=== PATIENT | female | born 1955 | race Caucasian/White ===

== ENCOUNTER 2022-04-07 08:45 | Outpatient (RCR) | payer MEDICARE, BC, SELFPAY ==
--- NOTE | 2022-02-24 12:48 | PT.OPDNX ---
PT [facility] Daily Note PT [facility] Daily Note Start: 01/12/22 15:21 Freq: Status: Active Protocol: Document 02/24/22 07:55 ENM (Rec: 02/24/22 12:08 ENM [id number]) E-signed By Kay Fallon DPT PT [facility] Daily Progress Note Visit Information Note Type Recert/Progress Note Visit Number [id number] Insurance Information Recert Due Date 05/19/22 Insurance Name Medicare B Medical Diagnosis left shoulder scope, SAD, mini open RCR, biceps tenodesis Treating Diagnosis left shoulder pain, muscle weakness, left shoulder stiffness Referring MD Dr. Carl/Jerri Patel PA-C Subjective Subjective Patient states that she may have overdone it with exercises on Tuesday. The shoulder was more sore but it is better today. She has been trying to be more aggressive with the stretches. Pain Comments avg 08/27 Home Exercise Home Exercise Comments door jam, TAYO IR with cane Access Code: [email or web address] URL: [email or web address] Date: 02/24/2022 Prepared by: Kay Fallon Exercises Seated Shoulder Flexion AAROM with Danny Behind - 1-2 x daily - 7 x weekly - 1 sets - 10-15 reps - 3s hold Standing Bilateral Shoulder Internal Rotation AAROM with Dowel - 2 x daily - 7 x weekly - 1 sets - 10 reps Standing Serratus Punch with Resistance - 1 x daily - 3 x weekly - 2 sets - 6 reps Shoulder Flexion Wall Slide with Towel - 1 x daily - 4 x weekly - 2 sets - 10 reps Shoulder Internal Rotation with Resistance - 1 x daily - 3 x weekly - 2 sets - 10 reps Shoulder External Rotation with Anchored Resistance - 1 x daily - 3 x weekly - 2 sets - 10 reps Sidelying Shoulder Abduction - 1 x daily - 3 x weekly - 2-3 sets - 10 reps Standing Shoulder Flexion to 90 Degrees with Dumbbells - 1 x daily - 3 x weekly - 2-3 sets - 10 reps Objective Other/Pertinent Objective Left shoulder: AROM: standing flexion 98 deg before shoulder shrug 104 before significant shrug with shrug 130 IR L4 ER able to get to get to mid skull supine flexion AROM 134 supine flexion PROM 139 Patient Instructed in Risks/Benefits Yes Therapeutic Exercise Therapeutic Exercise Minutes (minutes) 22 Therapeutic Exercise: To Restore -pulleys flexion x4 min for Functional Status warm up -supine flexion with cane 15x5s holds for warm up (able to get to 132). An additional 10 reps after STM -standing flexion working on scapular control while performing -standing flexion 1# 3x10 -empty can sidelying no weight 3x10 -door jam stretch Manual Therapy Techniques Manual Therapy Minutes (minutes) 22 Manual Therapy Techniques -scapular anchoring during passive flexion and abduction stretch -grade III/IV posterior and inferior glide of L GHJ -STM L teres major, infraspinatus, subscapularis and lats. Performed infra STM with abd and ER/IR stretch -inferior glide of scapula to tissue stretch *improved tolerance for stretches and exercises following Treatment Minutes Timed Code Treatment Minutes 44 Total Treatment Time 44 Billing Units Manual Therapy Units 1 Therapeutic Exercise Units 2 Assessment/Impression Assessment/Impression Patient 16 weeks s/p rotator cuff surgery (DOS 11/05/21). She continues have tightness in the shoulder with daily activities and trying to perform exercises. Significant time spent this session working on warm up stretches and ROM exercises. Patient responding well to this reporting less pain with exercises as well as displaying improved ROM. PROM has improved to 140 deg, AROM to ~100 before significant shoulder shrug compensation. Patient has met some goals for therapy but has been limited by weakness and decreased ROM. She has progressed slower than anticipated post operatively but has made steady progress throughout. Sallie would benefit from an additional 4-5 visits every other week to continue addressing impairments in order to perform all household and recreational activities post operatively without significant discomfort or difficulty. 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 Patient will be able to full golfing activities with less than 2/10 pain following 2. 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 She continues to be limited in terms of shoulder strength and ROM. She would continue to benefit from skilled PT to continue addressing these impairments in order to return to PLOF and activity post operatively. Rehabilitation Potential good Continued Plan of Care and Interventions Continue working on therapeutic exercise to increase functional shoulder strength and ROM. As well as manual therapy to improve tissue tension and joint mobility. Provider Signature Shows Agreement With POC & Medical Necessity Physician Comment/Change Comment or Changes Physician NPI Number #
== END 2022-06-11 15:30 | disposition home or self-care (01) ==
PROVIDERS: PCP Family Medicine; Visit Provider Orthopaedic Surgery
DX: M25.512 Pain in left shoulder (principal); Z51.89 Encounter for other specified aftercare
CPT/HCPCS: 97110; 97140

== ENCOUNTER 2022-09-28 09:30 | Outpatient (RCR) | payer MEDICARE, BC, SELFPAY | END 2023-02-03 23:59 | disposition home or self-care (01) | PROVIDERS: PCP Family Medicine; Visit Provider Family Medicine | DX: M25.552 Pain in left hip (principal); Z51.89 Encounter for other specified aftercare | CPT/HCPCS: 97110; 97161 ==